=== PATIENT | male | born 1990 | race Two or more races ===

== ENCOUNTER 2020-06-12 06:13 | Inpatient (IN) | payer BC, OTHER ==
[2020-06-12] MEDS ORDERED: Sodium Chloride 0.9% 2.5 ML Syringe FLUSH PRN (06:16)
[2020-06-12] MEDS ORDERED: Sodium Chloride 0.9% 10 ML Syringe FLUSH PRN (06:16)
[2020-06-12] MEDS ORDERED: Insulin Regular, Human 100 Units/ML 10 ML Vial IVPUSH ONE ×2 (06:20→06:56)
[2020-06-12] MEDS ORDERED: Sodium Chloride 0.9% 1,000 ML IV ONE ×2 (06:20→08:10)
[2020-06-12] MEDS ORDERED: Ondansetron 4 MG/2 ML SDV IVPUSH ONE ×2 (06:20→08:01)
--- NOTE | 2020-06-12 06:23 | EDM.PDOC ---
ED HPI GENERAL MEDICAL PROBLEM - General Stated Complaint: TROUBLE BREATHING, DIABETES Time Seen by Provider: 06/12/20 06:21 - History of Present Illness INITIAL COMMENTS - FREE TEXT/NARRATIVE: History of present illness: [] Diabetic who is not been admitted for the last 12 years reports his sugars were creeping up yesterday evening and he became short of breath at 430 this morning. He was getting ready to go to work and noted that his blood sugar was over 500. Feels chest pain when he breathes. It is constant and not sharp. It is in the left side of his chest moderately severe. He is short of breath and feels like he cannot get enough air. Patient has no abdominal pain. He did vomit once. He does not have any fever or other signs of systemic infection. Review of systems: As per history of present illness and below otherwise all systems reviewed and negative. Past medical history: As per history of present illness and as reviewed below otherwise noncontributory. Surgical history: As per history of present illness and as reviewed below otherwise noncontributory. Social history: Does not smoke or use drugs. He does drink alcohol. Family history: As per history of present illness and as reviewed below otherwise noncontri butory. Physical exam: Constitutional - well developed, well-nourished and in no acute distress HEENT - normocephalic, no evidence of trauma - external nose and mouth normal - no mass in neck and no JVD - mucosae moist EYES - full EOM, PERRL, no icterus - no evidence of inflammation, injection, or drainage Respiratory -held respiratory distress,, equal bilateral expansion, lungs clear to auscultation and no abnormal lung sounds Cardiovascular - Regular Rhythm with S1 and S2 appreciated and no murmur, gallop or rub. GI - abdomen soft without distension or organomegaly - normal bowel sounds - no guard or rebound Musculoskeletal no gross deformity of long bones or joints - no tenderness, swelling or edema Neurologic - Alert and oriented times four - CN II-XII grossly intact - motor se nsory and coordination symmetrically normal Psychiatric - appropriate mood and affect with normal thought content Hematologic - No petechiae or purpura - mucosa appropriate color and sclera not pale - normal nail bed color and refill Integument - no rash or evidence of trauma - normal turgor Diagnostics: Diagnostic tests initiated to ascertain whether he is in DKA and treatment assuming the same were initiated [] Therapeutics: Splinting fluids. Remainder according the lab [] Impression: DKA [] Plan: [] Definitive disposition and diagnosis as appropriate pending reevaluation and review of above. chest Pain Score (Numeric/FACES): 6 - Related Data Allergies Allergy/AdvReac Type Severity Reaction Status Date / Time ceftriaxone [From Rocephin] Allergy Anaphylactic Verified 06/12/20 06:40 Shock Home Meds: Home Meds Insulin Lispro [HumaLOG] 0 unit SUBCUT ASDIRECTED 06/12/20 [History] ED ROS GENERAL - Review of Systems Review Of Systems: Comprehensive ROS is negative, except as noted in HPI. ED EXAM, GENERAL - Physical Exam Exam: See Below Free Text/Narrative:: My physical exam as in the HPI EKG INTERPRETATION EKG Date: 06/12/20 Time: 06:20 Rhythm: NSR Rate (Beats/Min): 93 ST-T: Other (Depressions in lateral leads with borderline elevation and early precordial leads) Comparison: NA - No Prior EKG EKG Interpretation Comments: No obvious acute injury Course - Vital Signs Text/Narrative:: 06 47 not clinically improved. Chest x-ray shows no pneumothorax or infiltrate. Discussed with Dr. Zhu and admitted Last Recorded V/S: Last Vital Signs Temp 97.5 F 06/12/20 06:15 Pulse 113 H 06/12/20 06:53 Resp 21 H 06/12/20 06:53 BP 144/79 H 06/12/20 06:53 Pulse Ox 100 06/12/20 06:53 - Orders/Labs/Meds Orders: Active Orders 24 hr Category Date Time Status Admission Diagnosis [ADT] Stat ADT 06/12/20 07:09 Ordered Admission Status [Patient Status] [ADT] Stat ADT 06/12/20 07:10 Ordered Cardiac Monitoring [RC] . DIRECTED Care 06/12/20 06:16 Active EKG Documentation Completion [RC] AM Care 06/12/20 06:16 Active CORONAVIRUS COVID-19 PCR PHL Stat Lab 06/12/20 06:23 Ordered KETONES,BLOOD [CHEM] Stat Lab 06/12/20 06:15 Received Insulin Regular, Human [NovoLIN R] 100 unit Med 06/12/20 07:15 Ordered Sodium Chloride 0.9% [Normal Saline] 99 ml IV TITRATE Sodium Chloride 0.9% [Normal Saline] 1,000 ml Med 06/12/20 06:20 Active IV .BOLUS Sodium Chloride 0.9% [Saline Flush] Med 06/12/20 06:16 Active 10 ml FLUSH ASDIRECTED PRN Sodium Chloride 0.9% [Saline Flush] Med 06/12/20 06:16 Active 2.5 ml FLUSH ASDIRECTED PRN Saline Lock Insert [OM.PC] Stat Oth 06/12/20 06:17 Ordered Medication Orders Sodium Chloride (Normal Saline) 1,000 mls @ 999 mls/hr IV .BOLUS ONE Stop: 06/12/20 07:20 Last Admin: 06/12/20 06:26 Dose: 999 mls/hr Documented by: RUBY Insulin Human Regular 100 unit (/ Sodium Chloride) 100 mls @ 1 mls/hr IV TITRATE BABATUNDE; Protocol Sodium Chloride (Saline Flush) 10 ml FLUSH ASDIRECTED PRN PRN Reason: Keep Vein Open Last Admin: 06/12/20 06:37 Dose: 10 ml Documented by: RUBY Sodium Chloride (Saline Flush) 2.5 ml FLUSH ASDIRECTED PRN PRN Reason: Keep Vein Open Last Admin: 06/12/20 06:37 Dose: 2.5 ml Documented by: RUBY Labs: Laboratory Tests 06/12/20 06/12/20 06/12/20 Range/Units 06:15 06:15 06:28 WBC 7.72 (4.0-11.0) K/uL RBC 4.82 (4.50-5.90) M/uL Hgb 14.2 (13.0-17.0) g/dL Hct 42.1 (38.0-50.0) % MCV 87.3 (80.0-98.0) fL MCH 29.5 (27.0-32.0) pg MCHC 33.7 (31.0-37.0) g/dL RDW Std Deviation 40.2 (28.0-62.0) fl RDW Coeff of Willy 13 (11.0-15.0) % Plt Count 266 (150-400) K/uL MPV 12.10 H (7.40-12.00) fL Neut % (Auto) 79.0 (48.0-80.0) % Lymph % (Auto) 16.8 (16.0-40.0) % [place] % (Auto) 3.5 (0.0-15.0) % Eos % (Auto) 0.4 (0.0-7.0) % Baso % (Auto) 0.3 (0.0-1.5) % Neut # (Auto) 6.1 H (1.4-5.7) K/uL Lymph # (Auto) 1.3 (0.6-2.4) K/uL [place] # (Auto) 0.3 (0.0-0.8) K/uL Eos # (Auto) 0.0 (0.0-0.7) K/uL Baso # (Auto) 0.0 (0.0-0.1) K/uL Nucleated RBC % 0.0 /100WBC Nucleated RBCs # 0 K/uL ABG pH ABG pCO2 ABG pO2 ABG HCO3 ABG Total CO2 ABG Base Excess Sodium 124 L (136-148) mmol/L Potassium 4.4 (3.5-5.1) mmol/L Chloride 89 L (98-107) mmol/L Carbon Dioxide 14.2 L (21.0-32.0) mmol/L BUN 27 H (7.0-18.0) mg/dL Creatinine 1.7 H (0.8-1.3) mg/dL Est Cr Clr Drug Dosing 69.74 mL/min Estimated GFR (MDRD) 47.6 ml/min Glucose 593 H* (74-106) mg/dL POC Glucose > 500 H (60-110) mg/dL Calcium 9.1 (8.5-10.1) mg/dL Magnesium 2.0 (1.8-2.4) mg/dL Total Bilirubin 1.3 H (0.2-1.0) mg/dL AST 20 (15-37) IU/L ALT 22 (14-63) IU/L Alkaline Phosphatase 85 (46-116) U/L Troponin I < 0.050 (0.000-0.056) ng/mL Total Protein 8.5 H (6.4-8.2) g/dL Albumin 4.4 (3.4-5.0) g/dL Globulin 4.1 H (2.6-4.0) g/dL Albumin/Globulin Ratio 1.1 (0.9-1.6) Lipase 48 L (73-393) U/L Urine Color Urine Appearance Urine pH (5.0-8.0) Ur Specific [place] (1.001-1.035) Urine Protein (NEGATIVE) mg/dL Urine Glucose (UA) (NEGATIVE) mg/dL Urine Ketones (NEGATIVE) mg/dL Urine Occult Blood (NEGATIVE) Urine Nitrite (NEGATIVE) Urine Bilirubin (NEGATIVE) Urine Urobilinogen (<2.0) EU/dL Ur Leukocyte Esterase (NEGATIVE) Urine RBC (0-2/HPF) Urine WBC (0-5/HPF) Ur Epithelial Cells (NONE-FEW) Urine Bacteria (NEGATIVE) Urine Mucus (NONE-MOD) 06/12/20 06/12/20 06/12/20 Range/Units 06:35 06:35 06:46 WBC (4.0-11.0) K/uL RBC (4.50-5.90) M/uL Hgb (13.0-17.0) g/dL Hct (38.0-50.0) % MCV (80.0-98.0) fL MCH (27.0-32.0) pg MCHC (31.0-37.0) g/dL RDW Std Deviation (28.0-62.0) fl RDW Coeff of Willy (11.0-15.0) % Plt Count (150-400) K/uL MPV (7.40-12.00) fL Neut % (Auto) (48.0-80.0) % Lymph % (Auto) (16.0-40.0) % Ball[place] % (Auto) (0.0-15.0) % Eos % (Auto) (0.0-7.0) % Baso % (Auto) (0.0-1.5) % Neut # (Auto) (1.4-5.7) K/uL Lymph # (Auto) (0.6-2.4) K/uL Ballard # (Auto) (0.0-0.8) K/uL Eos # (Auto) (0.0-0.7) K/uL Baso # (Auto) (0.0-0.1) K/uL Nucleated RBC % /100WBC Nucleated RBCs # K/uL ABG pH Cancelled 7.336 L ABG pCO2 Cancelled 12 L ABG pO2 Cancelled 193 H ABG HCO3 Cancelled 6 L ABG Total CO2 Cancelled ABG Base Excess Cancelled -16.2 L Sodium (136-148) mmol/L Potassium (3.5-5.1) mmol/L Chloride (98-107) mmol/L Carbon Dioxide (21.0-32.0) mmol/L BUN (7.0-18.0) mg/dL Creatinine (0.8-1.3) mg/dL Est Cr Clr Drug Dosing mL/min Estimated GFR (MDRD) ml/min Glucose (74-106) mg/dL POC Glucose (60-110) mg/dL Calcium (8.5-10.1) mg/dL Magnesium (1.8-2.4) mg/dL Total Bilirubin (0.2-1.0) mg/dL AST (15-37) IU/L ALT (14-63) IU/L Alkaline Phosphatase (46-116) U/L Troponin I (0.000-0.056) ng/mL Total Protein (6.4-8.2) g/dL Albumin (3.4-5.0) g/dL Globulin (2.6-4.0) g/dL Albumin/Globulin Ratio (0.9-1.6) Lipase (73-393) U/L Urine Color YELLOW Urine Appearance CLEAR Urine pH 5.5 (5.0-8.0) Ur Specific [place] 1.015 (1.001-1.035) Urine Protein NEGATIVE (NEGATIVE) mg/dL Urine Glucose (UA) >=1000 (NEGATIVE) mg/dL Urine Ketones >=80 (NEGATIVE) mg/dL Urine Occult Blood TRACE-INTACT H (NEGATIVE) Urine Nitrite NEGATIVE (NEGATIVE) Urine Bilirubin NEGATIVE (NEGATIVE) Urine Urobilinogen 0.2 (<2.0) EU/dL Ur Leukocyte Esterase NEGATIVE (NEGATIVE) Urine RBC 0-2 (0-2/HPF) Urine WBC 0-1 (0-5/HPF) Ur Epithelial Cells OCCASIONAL (NONE-FEW) Urine Bacteria RARE (NEGATIVE) Urine Mucus LIGHT (NONE-MOD) 06/12/20 Range/Units 06:51 WBC (4.0-11.0) K/uL RBC (4.50-5.90) M/uL Hgb (13.0-17.0) g/dL Hct (38.0-50.0) % MCV (80.0-98.0) fL MCH (27.0-32.0) pg MCHC (31.0-37.0) g/dL RDW Std Deviation (28.0-62.0) fl RDW Coeff of Willy (11.0-15.0) % Plt Count (150-400) K/uL MPV (7.40-12.00) fL Neut % (Auto) (48.0-80.0) % Lymph % (Auto) (16.0-40.0) % Ballard % (Auto) (0.0-15.0) % Eos % (Auto) (0.0-7.0) % Baso % (Auto) (0.0-1.5) % Neut # (Auto) (1.4-5.7) K/uL Lymph # (Auto) (0.6-2.4) K/uL [place] # (Auto) (0.0-0.8) K/uL Eos # (Auto) (0.0-0.7) K/uL Baso # (Auto) (0.0-0.1) K/uL Nucleated RBC % /100WBC Nucleated RBCs # K/uL ABG pH ABG pCO2 ABG pO2 ABG HCO3 ABG Total CO2 ABG Base Excess Sodium (136-148) mmol/L Potassium (3.5-5.1) mmol/L Chloride (98-107) mmol/L Carbon Dioxide (21.0-32.0) mmol/L BUN (7.0-18.0) mg/dL Creatinine (0.8-1.3) mg/dL Est Cr Clr Drug Dosing mL/min Estimated GFR (MDRD) ml/min Glucose (74-106) mg/dL POC Glucose > 500 H (60-110) mg/dL Calcium (8.5-10.1) mg/dL Magnesium (1.8-2.4) mg/dL Total Bilirubin (0.2-1.0) mg/dL AST (15-37) IU/L ALT (14-63) IU/L Alkaline Phosphatase (46-116) U/L Troponin I (0.000-0.056) ng/mL Total Protein (6.4-8.2) g/dL Albumin (3.4-5.0) g/dL Globulin (2.6-4.0) g/dL Albumin/Globulin Ratio (0.9-1.6) Lipase (73-393) U/L Urine Color Urine Appearance Urine pH (5.0-8.0) Ur Specific [place] (1.001-1.035) Urine Protein (NEGATIVE) mg/dL Urine Glucose (UA) (NEGATIVE) mg/dL Urine Ketones (NEGATIVE) mg/dL Urine Occult Blood (NEGATIVE) Urine Nitrite (NEGATIVE) Urine Bilirubin (NEGATIVE) Urine Urobilinogen (<2.0) EU/dL Ur Leukocyte Esterase (NEGATIVE) Urine RBC (0-2/HPF) Urine WBC (0-5/HPF) Ur Epithelial Cells (NONE-FEW) Urine Bacteria (NEGATIVE) Urine Mucus (NONE-MOD) Meds: Medications Generic Name Dose Route Start Last Admin Trade Name Freq PRN Reason Stop Dose Admin Sodium Chloride 1,000 mls @ 999 mls/hr 06/12/20 06:20 06/12/20 06:26 Normal Saline IV 06/12/20 07:20 999 mls/hr .BOLUS ONE Administration Insulin Human Regular 100 unit 100 mls @ 1 mls/hr 06/12/20 07:15 / Sodium Chloride IV TITRATE BABATUNDE Protocol 1 UNIT/HR Sodium Chloride 10 ml 06/12/20 06:16 06/12/20 06:37 Saline Flush FLUSH 10 ml ASDIRECTED PRN Administration Keep Vein Open Sodium Chloride 2.5 ml 06/12/20 06:16 06/12/20 06:37 Saline Flush FLUSH 2.5 ml ASDIRECTED PRN Administration Keep Vein Open Discontinued Medications Generic Name Dose Route Start Last Admin Trade Name Freq PRN Reason Stop Dose Admin Insulin Human Regular 10 unit 06/12/20 06:20 06/12/20 06:26 Novolin R IVPUSH 06/12/20 06:21 10 unit ONETIME ONE Administration Protocol Insulin Human Regular 10 unit 06/12/20 06:56 06/12/20 06:58 Novolin R IVPUSH 06/12/20 06:57 10 unit ONETIME ONE Administration Protocol Morphine Sulfate 4 mg 06/12/20 06:39 06/12/20 06:43 Morphine IVPUSH 06/12/20 06:40 4 mg ONETIME ONE Administration Ondansetron HCl 4 mg 06/12/20 06:20 06/12/20 06:26 Zofran IVPUSH 06/12/20 06:21 4 mg ONETIME ONE Administration Departure - Departure Time of Disposition: 07:14 Disposition: Admitted As Inpatient 65 Clinical Impression: Diabetic ketoacidosis, Chest pain - Discharge Information Referrals: PCP,None [Primary Care Provider] - Sepsis Event Note (ED) - Focused Exam Vital Signs: Vital Signs Temp Pulse Resp BP Pulse Ox 06/12/20 06:53 113 H 21 H 144/79 H 100 06/12/20 06:15 97.5 F 105 H 20 144/78 H 100 - My Orders Last 24 Hours: My Active Orders 06/12/20 06:15 KETONES,BLOOD [CHEM] Stat 06/12/20 06:16 Cardiac Monitoring [RC] . DIRECTED EKG Documentation Completion [RC] AM Sodium Chloride 0.9% [Saline Flush] 10 ml FLUSH ASDIRECTED PRN Sodium Chloride 0.9% [Saline Flush] 2.5 ml FLUSH ASDIRECTED PRN 06/12/20 06:17 Saline Lock Insert [OM.PC] Stat 06/12/20 06:20 Sodium Chloride 0.9% [Normal Saline] 1,000 ml IV .BOLUS 06/12/20 06:23 CORONAVIRUS COVID-19 PCR PHL Stat 06/12/20 07:09 Admission Diagnosis [ADT] Stat 06/12/20 07:10 Admission Status [Patient Status] [ADT] Stat 06/12/20 07:15 Insulin Regular, Human [NovoLIN R] 100 unit Sodium Chloride 0.9% [Normal Saline] 99 ml IV TITRATE - Assessment/Plan Last 24 Hours: My Active Orders 06/12/20 06:15 KETONES,BLOOD [CHEM] Stat 06/12/20 06:16 Cardiac Monitoring [RC] . DIRECTED EKG Documentation Completion [RC] AM Sodium Chloride 0.9% [Saline Flush] 10 ml FLUSH ASDIRECTED PRN Sodium Chloride 0.9% [Saline Flush] 2.5 ml FLUSH ASDIRECTED PRN 06/12/20 06:17 Saline Lock Insert [OM.PC] Stat 06/12/20 06:20 Sodium Chloride 0.9% [Normal Saline] 1,000 ml IV .BOLUS 06/12/20 06:23 CORONAVIRUS COVID-19 PCR PHL Stat 06/12/20 07:09 Admission Diagnosis [ADT] Stat 06/12/20 07:10 Admission Status [Patient Status] [ADT] Stat 06/12/20 07:15 Insulin Regular, Human [NovoLIN R] 100 unit Sodium Chloride 0.9% [Normal Saline] 99 ml IV TITRATE
[2020-06-12] MEDS ORDERED: Morphine 4 MG/ML Syringe IVPUSH ONE (06:39)
--- NOTE | 2020-06-12 07:03 | CR ---
INDICATION: Chest pain. TECHNIQUE: Chest 1 view Comparison: None Findings: Cardiomediastinal silhouette is unremarkable. No focal lung consolidation, pleural effusion or pneumothorax. Cardiac leads overlie the chest. Bones are unremarkable. Impression: No acute cardiopulmonary abnormality. Dictated by Allan Guadarrama MD @ Jun 12 2020 7:00AM Signed by Dr. Allan Guadarrama @ Jun 12 2020 7:01AM
[2020-06-12 07:09] LABS: BLOOD UREA NITROGEN,BUN 27 mg/dL (7.0-18.0); CARBON DIOXIDE,CO2 14.2 mmol/L (21.0-32.0); CHLORIDE,CL 89 mmol/L (98-107); LIPASE 48 U/L (73-393); POTASSIUM,K 4.4 mmol/L (3.5-5.1); SODIUM,NA 124 mmol/L (136-148)
[2020-06-12 07:12] LABS: GLUCOSE RANDOM 593 mg/dL (74-106)
[2020-06-12] MEDS ORDERED: Ondansetron 4 MG/2 ML SDV ONE (08:01)
[2020-06-12] MEDS ORDERED: Lactated Ringers 1,000 ML IV ONE (08:24)
[2020-06-12] MEDS ORDERED: Albuterol/Ipratropium 3.0-0.5 MG/3 ML Neb Soln NEB PRN (08:24)
[2020-06-12] MEDS ORDERED: Ondansetron 4 MG/2 ML SDV IVPUSH PRN (08:24)
[2020-06-12] MEDS ORDERED: Morphine 10 MG/ML Syringe IVPUSH PRN (08:24)
[2020-06-12] MEDS: Heparin Sodium 5,000 Units/ML Vial SUBCUT SCH ×2 (08:50→16:30)
[2020-06-12] MEDS ORDERED: Morphine 2 MG/ML SYRINGE IVPUSH PRN (08:58)
[2020-06-12] MEDS: Lactated Ringers 1,000 ML IV SCH ×2 (09:31→20:52)
--- NOTE | 2020-06-12 10:04 | PCM.HP.2 ---
<Db Bentley M - Last Filed: 06/12/20 14:00> H&P History of Present Illness - General Date of Service: 06/12/20 Admit Problem/Dx: Admission Diagnosis/Problem Admission Diagnosis/Problem Diabetic ketoacidosis Source of Information: Patient History Limitations: Reports: No Limitations - History of Present Illness Initial Comments - Free Text/Narative: 29-year-old male presents today complaining of SOB, chest pain, nausea and vomiting. He has a PMH of type 1 DM. Patient reports that yesterday night he became very thirsty and urinating a lot. He has an insulin pump and noticed that his blood sugar readings kept increasing. This morning, he was trying to go to work but became so weak that he couldn't even get dressed. He checked his blood glucose and it was >500. He believes that his insulin pump has been malfunctioning. He has been on an insulin pump for the past 6 months and reports that it had been working well. He denies any recent illness. Denies any fevers, chills, cough, sore throat, abdominal pain, diarrhea, dysuria, blood in urine, blood in stool, numbness or tingling in extremities. In the ER, patient's blood glucose was 593. ABG: pH: 7.33, pCO2: 12 and HCO3: 6. CXR negative. COVID19 test negative. Patient given IV fluid boluses and started on insulin drip. Admitted for further evaluation and treatment. chest Pain Score (Numeric/FACES): 6 - Related Data Allergies/Adverse Reactions: Allergies Allergy/AdvReac Type Severity Reaction Status Date / Time ceftriaxone [From Rocephin] Allergy Anaphylactic Verified 06/12/20 06:40 Shock Home Medications: Home Meds Insulin Lispro [HumaLOG] 0 unit SUBCUT ASDIRECTED 06/12/20 [History] Past Medical History Gastrointestinal History: Reports: None Musculoskeletal History: Reports: None Endocrine/Metabolic History: Reports: Diabetes, Type I, Other (See Below) Other Endocrine/Metabolic History: on insulin pump - Past Surgical History GI Surgical History: Reports: Appendectomy Musculoskeletal Surgical History: Reports: Other (See Below) Other Musculoskeletal Surgeries/Procedures:: R thumb Social & Family History - Family History Family Medical History: Noncontributory - Tobacco Use Smoking Status *Q: Never Smoker Second Hand Smoke Exposure: No - Caffeine Use Caffeine Use: Reports: None - Recreational Drug Use Recreational Drug Use: No H&P Review of Systems - Review of Systems: Review Of Systems: Comprehensive ROS is negative, except as noted in HPI. Exam - Exam Exam: See Below - Vital Signs Vital Signs: Last Vital Signs Temp 36.4 C 06/12/20 06:15 Pulse 118 H 06/12/20 09:24 Resp 16 06/12/20 09:24 BP 111/56 L 06/12/20 09:24 Pulse Ox 98 06/12/20 09:24 Weight: 81.647 kg - Exam General: Alert, Oriented, Cooperative, Other (NAD) HEENT: Conjunctiva Clear, EOMI, Hearing Intact, Mucosa Moist & Quintana, Posterior Pharynx Clear, Pupils Equal, Pupils Reactive Neck: Supple, Trachea Midline Lungs: Clear to Auscultation, Normal Respiratory Effort Cardiovascular: Regular Rhythm, Tachycardia GI/Abdominal Exam: Normal Bowel Sounds, Soft, Non-Tender, No Distention Extremities: Normal Inspection, No Pedal Edema Peripheral Pulses: 2+: Radial (L), Radial (R) Skin: Warm, Dry, Intact Neurological: Cranial Nerves Intact, Strength Equal Bilateral, Normal Speech, Normal Tone Neuro Extensive - Mental Status: Alert, Oriented x3, Normal Mood/Affect Psychiatric: Alert, Normal Affect, Normal Mood - Patient Data Lab Results Last 24 hrs: Laboratory Results - last 24 hr 06/12/20 06/12/20 06/12/20 Range/Units 06:15 06:15 06:15 WBC 7.72 (4.0-11.0) K/uL RBC 4.82 (4.50-5.90) M/uL Hgb 14.2 (13.0-17.0) g/dL Hct 42.1 (38.0-50.0) % MCV 87.3 (80.0-98.0) fL MCH 29.5 (27.0-32.0) pg MCHC 33.7 (31.0-37.0) g/dL RDW Std Deviation 40.2 (28.0-62.0) fl RDW Coeff of Willy 13 (11.0-15.0) % Plt Count 266 (150-400) K/uL MPV 12.10 H (7.40-12.00) fL Neut % (Auto) 79.0 (48.0-80.0) % Lymph % (Auto) 16.8 (16.0-40.0) % Bradley % (Auto) 3.5 (0.0-15.0) % Eos % (Auto) 0.4 (0.0-7.0) % Baso % (Auto) 0.3 (0.0-1.5) % Neut # (Auto) 6.1 H (1.4-5.7) K/uL Lymph # (Auto) 1.3 (0.6-2.4) K/uL Bradley # (Auto) 0.3 (0.0-0.8) K/uL Eos # (Auto) 0.0 (0.0-0.7) K/uL Baso # (Auto) 0.0 (0.0-0.1) K/uL Nucleated RBC % 0.0 /100WBC Nucleated RBCs # 0 K/uL ABG pH ABG pCO2 ABG pO2 ABG HCO3 ABG Total CO2 ABG Base Excess Sodium 124 L (136-148) mmol/L Potassium 4.4 (3.5-5.1) mmol/L Chloride 89 L (98-107) mmol/L Carbon Dioxide 14.2 L (21.0-32.0) mmol/L BUN 27 H (7.0-18.0) mg/dL Creatinine 1.7 H (0.8-1.3) mg/dL Est Cr Clr Drug Dosing 69.74 mL/min Estimated GFR (MDRD) 47.6 ml/min Glucose 593 H* (74-106) mg/dL POC Glucose (60-110) mg/dL Calcium 9.1 (8.5-10.1) mg/dL Magnesium 2.0 (1.8-2.4) mg/dL Total Bilirubin 1.3 H (0.2-1.0) mg/dL AST 20 (15-37) IU/L ALT 22 (14-63) IU/L Alkaline Phosphatase 85 (46-116) U/L Troponin I < 0.050 (0.000-0.056) ng/mL Total Protein 8.5 H (6.4-8.2) g/dL Albumin 4.4 (3.4-5.0) g/dL Globulin 4.1 H (2.6-4.0) g/dL Albumin/Globulin Ratio 1.1 (0.9-1.6) Lipase 48 L (73-393) U/L Urine Color Urine Appearance Urine pH (5.0-8.0) Ur Specific [place] (1.001-1.035) Urine Protein (NEGATIVE) mg/dL Urine Glucose (UA) (NEGATIVE) mg/dL Urine Ketones (NEGATIVE) mg/dL Urine Occult Blood (NEGATIVE) Urine Nitrite (NEGATIVE) Urine Bilirubin (NEGATIVE) Urine Urobilinogen (<2.0) EU/dL Ur Leukocyte Esterase (NEGATIVE) Urine RBC (0-2/HPF) Urine WBC (0-5/HPF) Ur Epithelial Cells (NONE-FEW) Urine Bacteria (NEGATIVE) Urine Mucus (NONE-MOD) Ketones SMALL H (NEG) COVID-19 ([facility]ON) (NEGATIVE) 06/12/20 06/12/20 06/12/20 Range/Units 06:28 06:35 06:35 WBC (4.0-11.0) K/uL RBC (4.50-5.90) M/uL Hgb (13.0-17.0) g/dL Hct (38.0-50.0) % MCV (80.0-98.0) fL MCH (27.0-32.0) pg MCHC (31.0-37.0) g/dL RDW Std Deviation (28.0-62.0) fl RDW Coeff of Willy (11.0-15.0) % Plt Count (150-400) K/uL MPV (7.40-12.00) fL Neut % (Auto) (48.0-80.0) % Lymph % (Auto) (16.0-40.0) % Bradley % (Auto) (0.0-15.0) % Eos % (Auto) (0.0-7.0) % Baso % (Auto) (0.0-1.5) % Neut # (Auto) (1.4-5.7) K/uL Lymph # (Auto) (0.6-2.4) K/uL Bradley # (Auto) (0.0-0.8) K/uL Eos # (Auto) (0.0-0.7) K/uL Baso # (Auto) (0.0-0.1) K/uL Nucleated RBC % /100WBC Nucleated RBCs # K/uL ABG pH Cancelled ABG pCO2 Cancelled ABG pO2 Cancelled ABG HCO3 Cancelled ABG Total CO2 Cancelled ABG Base Excess Cancelled Sodium (136-148) mmol/L Potassium (3.5-5.1) mmol/L Chloride (98-107) mmol/L Carbon Dioxide (21.0-32.0) mmol/L BUN (7.0-18.0) mg/dL Creatinine (0.8-1.3) mg/dL Est Cr Clr Drug Dosing mL/min Estimated GFR (MDRD) ml/min Glucose (74-106) mg/dL POC Glucose > 500 H (60-110) mg/dL Calcium (8.5-10.1) mg/dL Magnesium (1.8-2.4) mg/dL Total Bilirubin (0.2-1.0) mg/dL AST (15-37) IU/L ALT (14-63) IU/L Alkaline Phosphatase (46-116) U/L Troponin I (0.000-0.056) ng/mL Total Protein (6.4-8.2) g/dL Albumin (3.4-5.0) g/dL Globulin (2.6-4.0) g/dL Albumin/Globulin Ratio (0.9-1.6) Lipase (73-393) U/L Urine Color YELLOW Urine Appearance CLEAR Urine pH 5.5 (5.0-8.0) Ur Specific [place] 1.015 (1.001-1.035) Urine Protein NEGATIVE (NEGATIVE) mg/dL Urine Glucose (UA) >=1000 (NEGATIVE) mg/dL Urine Ketones >=80 (NEGATIVE) mg/dL Urine Occult Blood TRACE-INTACT H (NEGATIVE) Urine Nitrite NEGATIVE (NEGATIVE) Urine Bilirubin NEGATIVE (NEGATIVE) Urine Urobilinogen 0.2 (<2.0) EU/dL Ur Leukocyte Esterase NEGATIVE (NEGATIVE) Urine RBC 0-2 (0-2/HPF) Urine WBC 0-1 (0-5/HPF) Ur Epithelial Cells OCCASIONAL (NONE-FEW) Urine Bacteria RARE (NEGATIVE) Urine Mucus LIGHT (NONE-MOD) Ketones (NEG) COVID-19 ([facility]) (NEGATIVE) 08/02/2606/12/20 06/12/20 Range/Units 06:46 06:51 07:15 WBC (4.0-11.0) K/uL RBC (4.50-5.90) M/uL Hgb (13.0-17.0) g/dL Hct (38.0-50.0) % MCV (80.0-98.0) fL MCH (27.0-32.0) pg MCHC (31.0-37.0) g/dL RDW Std Deviation (28.0-62.0) fl RDW Coeff of Willy (11.0-15.0) % Plt Count (150-400) K/uL MPV (7.40-12.00) fL Neut % (Auto) (48.0-80.0) % Lymph % (Auto) (16.0-40.0) % Bradley % (Auto) (0.0-15.0) % Eos % (Auto) (0.0-7.0) % Baso % (Auto) (0.0-1.5) % Neut # (Auto) (1.4-5.7) K/uL Lymph # (Auto) (0.6-2.4) K/uL Bradley # (Auto) (0.0-0.8) K/uL Eos # (Auto) (0.0-0.7) K/uL Baso # (Auto) (0.0-0.1) K/uL Nucleated RBC % /100WBC Nucleated RBCs # K/uL ABG pH 7.336 L ABG pCO2 12 L ABG pO2 193 H ABG HCO3 6 L ABG Total CO2 ABG Base Excess -16.2 L Sodium (136-148) mmol/L Potassium (3.5-5.1) mmol/L Chloride (98-107) mmol/L Carbon Dioxide (21.0-32.0) mmol/L BUN (7.0-18.0) mg/dL Creatinine (0.8-1.3) mg/dL Est Cr Clr Drug Dosing mL/min Estimated GFR (MDRD) ml/min Glucose (74-106) mg/dL POC Glucose > 500 H (60-110) mg/dL Calcium (8.5-10.1) mg/dL Magnesium (1.8-2.4) mg/dL Total Bilirubin (0.2-1.0) mg/dL AST (15-37) IU/L ALT (14-63) IU/L Alkaline Phosphatase (46-116) U/L Troponin I (0.000-0.056) ng/mL Total Protein (6.4-8.2) g/dL Albumin (3.4-5.0) g/dL Globulin (2.6-4.0) g/dL Albumin/Globulin Ratio (0.9-1.6) Lipase (73-393) U/L Urine Color Urine Appearance Urine pH (5.0-8.0) Ur Specific [place] (1.001-1.035) Urine Protein (NEGATIVE) mg/dL Urine Glucose (UA) (NEGATIVE) mg/dL Urine Ketones (NEGATIVE) mg/dL Urine Occult Blood (NEGATIVE) Urine Nitrite (NEGATIVE) Urine Bilirubin (NEGATIVE) Urine Urobilinogen (<2.0) EU/dL Ur Leukocyte Esterase (NEGATIVE) Urine RBC (0-2/HPF) Urine WBC (0-5/HPF) Ur Epithelial Cells (NONE-FEW) Urine Bacteria (NEGATIVE) Urine Mucus (NONE-MOD) Ketones (NEG) COVID-19 ([facility]ON) NEGATIVE (NEGATIVE) 06/12/20 Range/Units 07:20 WBC (4.0-11.0) K/uL RBC (4.50-5.90) M/uL Hgb (13.0-17.0) g/dL Hct (38.0-50.0) % MCV (80.0-98.0) fL MCH (27.0-32.0) pg MCHC (31.0-37.0) g/dL RDW Std Deviation (28.0-62.0) fl RDW Coeff of Willy (11.0-15.0) % Plt Count (150-400) K/uL MPV (7.40-12.00) fL Neut % (Auto) (48.0-80.0) % Lymph % (Auto) (16.0-40.0) % Bradley % (Auto) (0.0-15.0) % Eos % (Auto) (0.0-7.0) % Baso % (Auto) (0.0-1.5) % Neut # (Auto) (1.4-5.7) K/uL Lymph # (Auto) (0.6-2.4) K/uL Bradley # (Auto) (0.0-0.8) K/uL Eos # (Auto) (0.0-0.7) K/uL Baso # (Auto) (0.0-0.1) K/uL Nucleated RBC % /100WBC Nucleated RBCs # K/uL ABG pH ABG pCO2 ABG pO2 ABG HCO3 ABG Total CO2 ABG Base Excess Sodium (136-148) mmol/L Potassium (3.5-5.1) mmol/L Chloride (98-107) mmol/L Carbon Dioxide (21.0-32.0) mmol/L BUN (7.0-18.0) mg/dL Creatinine (0.8-1.3) mg/dL Est Cr Clr Drug Dosing mL/min Estimated GFR (MDRD) ml/min Glucose (74-106) mg/dL POC Glucose > 500 H (60-110) mg/dL Calcium (8.5-10.1) mg/dL Magnesium (1.8-2.4) mg/dL Total Bilirubin (0.2-1.0) mg/dL AST (15-37) IU/L ALT (14-63) IU/L Alkaline Phosphatase (46-116) U/L Troponin I (0.000-0.056) ng/mL Total Protein (6.4-8.2) g/dL Albumin (3.4-5.0) g/dL Globulin (2.6-4.0) g/dL Albumin/Globulin Ratio (0.9-1.6) Lipase (73-393) U/L Urine Color Urine Appearance Urine pH (5.0-8.0) Ur Specific [place] (1.001-1.035) Urine Protein (NEGATIVE) mg/dL Urine Glucose (UA) (NEGATIVE) mg/dL Urine Ketones (NEGATIVE) mg/dL Urine Occult Blood (NEGATIVE) Urine Nitrite (NEGATIVE) Urine Bilirubin (NEGATIVE) Urine Urobilinogen (<2.0) EU/dL Ur Leukocyte Esterase (NEGATIVE) Urine RBC (0-2/HPF) Urine WBC (0-5/HPF) Ur Epithelial Cells (NONE-FEW) Urine Bacteria (NEGATIVE) Urine Mucus (NONE-MOD) Ketones (NEG) COVID-19 ([facility]) (NEGATIVE) Result Diagrams: 06/12/20 06:15 06/12/20 12:00 Sepsis Event Note - Evaluation Sepsis Screening Result: No Definite Risk - Focused Exam Vital Signs: Vital Signs Temp Pulse Resp BP Pulse Ox 06/12/20 09:24 118 H 16 111/56 L 98 06/12/20 08:53 109 H 17 110/53 L 99 06/12/20 08:22 109 H 17 118/57 L 99 06/12/20 08:19 107 H 18 118/57 L 99 06/12/20 07:47 105 H 17 125/63 100 06/12/20 06:53 113 H 21 H 144/79 H 100 06/12/20 06:15 36.4 C 105 H 20 144/78 H 100 Date Exam was Performed: 06/12/20 Time Exam was Performed: 14:00 Problem List Initiated/Reviewed/Updated: Yes Orders Last 24hrs: Active Orders 24 hr Category Date Time Status Admission Diagnosis [ADT] Stat ADT 06/12/20 07:09 Ordered Admission Status [Patient Status] [ADT] Stat ADT 06/12/20 07:10 Active Ambulate [RC] ASDIRECTED Care 06/12/20 08:24 Active Antiembolic Devices [RC] PER UNIT ROUTINE Care 06/12/20 08:26 Active Cardiac Monitoring [RC] . DIRECTED Care 06/12/20 06:16 Active Communication Order [RC] STAT Care 06/12/20 08:29 Active Communication Order [RC] STAT Care 06/12/20 08:29 Active Communication Order [RC] STAT Care 06/12/20 08:29 Active Communication Order [RC] STAT Care 06/12/20 08:29 Active EKG Documentation Completion [RC] AM Care 06/12/20 06:16 Active Oxygen Therapy [RC] PRN Care 06/12/20 08:24 Active Pulse Oximetry [RC] PRN Care 06/12/20 08:25 Active RT Aerosol Therapy [RC] ASDIRECTED Care 06/12/20 08:28 Active VTE/DVT Education [RC] PER UNIT ROUTINE Care 06/12/20 08:24 Active Vital Signs [RC] Q1H Care 06/12/20 08:24 Active Nothing per Oral Now Diet [DIET] Diet 06/12/20 Breakfast Active BASIC METABOLIC PANEL,BMP [CHEM] Q4H Lab 06/12/20 12:00 Ordered BASIC METABOLIC PANEL,BMP [CHEM] Q4 Lab 06/12/20 16:00 Ordered BASIC METABOLIC PANEL,BMP [CHEM] Q4 Lab 06/12/20 20:00 Ordered MAGNESIUM [CHEM] Q4 Lab 06/12/20 12:00 Ordered MAGNESIUM [CHEM] Q4 Lab 06/12/20 16:00 Ordered MAGNESIUM [CHEM] Q4 Lab 06/12/20 20:00 Ordered PHOSPHORUS [CHEM] Q4 Lab 06/12/20 12:00 Ordered PHOSPHORUS [CHEM] Q4 Lab 06/12/20 16:00 Ordered PHOSPHORUS [CHEM] Q4 Lab 06/12/20 20:00 Ordered Albuterol/Ipratropium [DuoNeb 3.0-0.5 MG/3 ML] Med 06/12/20 08:24 Active 3 ml NEB Q4HRRT PRN Heparin Sodium Med 06/12/20 08:30 Active 5,000 units SUBCUT Q8H Insulin Regular, Human [NovoLIN R] 100 unit Med 06/12/20 07:15 Active Sodium Chloride 0.9% [Normal Saline] 99 ml IV TITRATE Lactated Ringers [Ringers, Lactated] 1,000 ml Med 06/12/20 08:30 Active IV ASDIRECTED Morphine Med 06/12/20 08:58 Active 1 mg IVPUSH Q4H PRN Ondansetron [Zofran] Med 06/12/20 08:24 Active 4 mg IVPUSH Q4H PRN Sodium Chloride 0.9% [Saline Flush] Med 06/12/20 06:16 Active 10 ml FLUSH ASDIRECTED PRN Sodium Chloride 0.9% [Saline Flush] Med 06/12/20 06:16 Active 2.5 ml FLUSH ASDIRECTED PRN Saline Lock Insert [OM.PC] Stat Oth 06/12/20 06:17 Ordered Sequential Compression Device [OM.PC] Per Unit Routine Oth 06/12/20 08:25 Ordered Resuscitation Status Routine Resus Stat 06/12/20 08:24 Ordered Medication Orders Albuterol/Ipratropium (Duoneb 3.0-0.5 Mg/3 Ml) 3 ml NEB Q4HRRT PRN PRN Reason: Shortness Of Breath/wheezing Heparin Sodium (Porcine) (Heparin Sodium) 5,000 units SUBCUT Q8H [facility] Last Admin: 06/12/20 08:50 Dose: 5,000 units Documented by: PAWEL Insulin Human Regular 100 unit (/ Sodium Chloride) 100 mls @ 1 mls/hr IV TITRATE [facility]; Protocol Last Titration: 06/12/20 09:21 Dose: 8 unit/hr, 8 mls/hr Documented by: PAWEL Cosigned by: ELIU Admin: 06/12/20 08:13 Dose: 1 unit/hr, 1 mls/hr Documented by: PAWEL Cosigned by: YULISSA Lactated Ringer's (Ringers, Lactated) 1,000 mls @ 125 mls/hr IV ASDIRECTED [facility] Last Admin: 06/12/20 09:31 Dose: 125 mls/hr Documented by: PAWEL Morphine Sulfate (Morphine) 1 mg IVPUSH Q4H PRN PRN Reason: Pain (severe 7-10) Stop: 06/13/20 08:59 Ondansetron HCl (Zofran) 4 mg IVPUSH Q4H PRN PRN Reason: Nausea/Vomiting Sodium Chloride (Saline Flush) 10 ml FLUSH ASDIRECTED PRN PRN Reason: Keep Vein Open Last Admin: 06/12/20 06:37 Dose: 10 ml Documented by: RUBY Sodium Chloride (Saline Flush) 2.5 ml FLUSH ASDIRECTED PRN PRN Reason: Keep Vein Open Last Admin: 06/12/20 06:37 Dose: 2.5 ml Documented by: RUBY Assessment/Plan Comment:: Assessment and Plan: 1. Diabetic ketoacidosis: - Admit to ICU. Patient received 2 L IV fluid bolus in ER. Continue IV LR's and insulin drip per DKA protocol. Will replete electrolytes as required. Will check BMP q4h. Patient reports that he believes his insulin pump malfunctioned. Will consult diabetic education. 2. DVT prophylaxis: heparin. <Dario Zhu - Last Filed: 06/13/20 11:31> H&P History of Present Illness - General Admit Problem/Dx: Admission Diagnosis/Problem Admission Diagnosis/Problem Diabetic ketoacidosis - History of Present Illness Initial Comments - Free Text/Narative: I performed a history and physical exam of the patient and discussed management with resident. I have reviewed the residents note and agree with documented findings and plan unless otherwise specified in my note. chest Pain Score (Numeric/FACES): 0 Throat Pain Score (Numeric/FACES): 0 Exam - Vital Signs Vital Signs: Last Vital Signs Temp 36.9 C 06/13/20 07:00 Pulse 87 06/13/20 10:00 Resp 13 06/13/20 11:00 BP 136/83 06/13/20 11:00 Pulse Ox 99 06/13/20 11:00 - Patient Data Lab Results Last 24 hrs: Laboratory Results - last 24 hr 06/12/20 06/12/20 06/12/20 Range/Units 12:00 12:00 13:08 Sodium 136 (136-148) mmol/L Potassium 4.3 (3.5-5.1) mmol/L Chloride 102 (98-107) mmol/L Carbon Dioxide 14.5 L (21.0-32.0) mmol/L BUN 25 H (7.0-18.0) mg/dL Creatinine 1.5 H (0.8-1.3) mg/dL Est Cr Clr Drug Dosing 79.04 mL/min Estimated GFR (MDRD) 55.0 ml/min Glucose 297 H (74-106) mg/dL POC Glucose 298 H 252 H (60-110) mg/dL Hemoglobin A1c (4.5-6.2) % Calcium 8.1 L (8.5-10.1) mg/dL Phosphorus 4.0 (2.6-4.7) mg/dL Magnesium 1.9 (1.8-2.4) mg/dL Albumin (3.4-5.0) g/dL Triglycerides (0-200) mg/dL Cholesterol (50-200) mg/dL LDL Cholesterol, Calc (60-180) mg/dL VLDL Cholesterol (5-55) mg/dL HDL Cholesterol (40-60) mg/dL Cholesterol/HDL Ratio (3.3-6.0) TSH 3rd Generation (0.36-3.74) uIU/mL 06/12/20 06/12/20 06/12/20 Range/Units 14:04 15:10 15:59 Sodium 138 (136-148) mmol/L Potassium 4.0 (3.5-5.1) mmol/L Chloride 105 (98-107) mmol/L Carbon Dioxide 21.1 (21.0-32.0) mmol/L BUN 21 H (7.0-18.0) mg/dL Creatinine 1.3 (0.8-1.3) mg/dL Est Cr Clr Drug Dosing 91.20 mL/min Estimated GFR (MDRD) > 60.0 ml/min Glucose 181 H (74-106) mg/dL POC Glucose 206 H 175 H (60-110) mg/dL Hemoglobin A1c (4.5-6.2) % Calcium 8.3 L (8.5-10.1) mg/dL Phosphorus 3.8 (2.6-4.7) mg/dL Magnesium 1.9 (1.8-2.4) mg/dL Albumin (3.4-5.0) g/dL Triglycerides (0-200) mg/dL Cholesterol (50-200) mg/dL LDL Cholesterol, Calc (60-180) mg/dL VLDL Cholesterol (5-55) mg/dL HDL Cholesterol (40-60) mg/dL Cholesterol/HDL Ratio (3.3-6.0) TSH 3rd Generation (0.36-3.74) uIU/mL 06/12/20 06/12/20 06/12/20 Range/Units 16:04 17:24 18:04 Sodium (136-148) mmol/L Potassium (3.5-5.1) mmol/L Chloride (98-107) mmol/L Carbon Dioxide (21.0-32.0) mmol/L BUN (7.0-18.0) mg/dL Creatinine (0.8-1.3) mg/dL Est Cr Clr Drug Dosing mL/min Estimated GFR (MDRD) ml/min Glucose (74-106) mg/dL POC Glucose 177 H 158 H 143 H (60-110) mg/dL Hemoglobin A1c (4.5-6.2) % Calcium (8.5-10.1) mg/dL Phosphorus (2.6-4.7) mg/dL Magnesium (1.8-2.4) mg/dL Albumin (3.4-5.0) g/dL Triglycerides (0-200) mg/dL Cholesterol (50-200) mg/dL LDL Cholesterol, Calc (60-180) mg/dL VLDL Cholesterol (5-55) mg/dL HDL Cholesterol (40-60) mg/dL Cholesterol/HDL Ratio (3.3-6.0) TSH 3rd Generation (0.36-3.74) uIU/mL 06/12/20 06/12/20 06/13/20 Range/Units 19:25 20:05 00:23 Sodium 136 (136-148) mmol/L Potassium 4.0 (3.5-5.1) mmol/L Chloride 103 (98-107) mmol/L Carbon Dioxide 20.9 L (21.0-32.0) mmol/L BUN 23 H (7.0-18.0) mg/dL Creatinine 1.4 H (0.8-1.3) mg/dL Est Cr Clr Drug Dosing 84.68 mL/min Estimated GFR (MDRD) 59.5 ml/min Glucose 215 H (74-106) mg/dL POC Glucose 181 H 346 H (60-110) mg/dL Hemoglobin A1c (4.5-6.2) % Calcium 8.1 L (8.5-10.1) mg/dL Phosphorus 4.4 (2.6-4.7) mg/dL Magnesium 1.8 (1.8-2.4) mg/dL Albumin (3.4-5.0) g/dL Triglycerides (0-200) mg/dL Cholesterol (50-200) mg/dL LDL Cholesterol, Calc (60-180) mg/dL VLDL Cholesterol (5-55) mg/dL HDL Cholesterol (40-60) mg/dL Cholesterol/HDL Ratio (3.3-6.0) TSH 3rd Generation (0.36-3.74) uIU/mL 06/13/20 06/13/20 06/13/20 Range/Units 01:27 02:00 03:00 Sodium 130 L (136-148) mmol/L Potassium 4.2 (3.5-5.1) mmol/L Chloride 100 (98-107) mmol/L Carbon Dioxide 17.4 L (21.0-32.0) mmol/L BUN 28 H (7.0-18.0) mg/dL Creatinine 1.4 H (0.8-1.3) mg/dL Est Cr Clr Drug Dosing 84.68 mL/min Estimated GFR (MDRD) 59.5 ml/min Glucose 360 H (74-106) mg/dL POC Glucose 342 H 331 H (60-110) mg/dL Hemoglobin A1c (4.5-6.2) % Calcium 7.6 L (8.5-10.1) mg/dL Phosphorus 3.8 (2.6-4.7) mg/dL Magnesium 1.8 (1.8-2.4) mg/dL Albumin (3.4-5.0) g/dL Triglycerides (0-200) mg/dL Cholesterol (50-200) mg/dL LDL Cholesterol, Calc (60-180) mg/dL VLDL Cholesterol (5-55) mg/dL HDL Cholesterol (40-60) mg/dL Cholesterol/HDL Ratio (3.3-6.0) TSH 3rd Generation (0.36-3.74) uIU/mL 06/13/20 06/13/20 06/13/20 Range/Units 04:00 06:00 06:00 Sodium (136-148) mmol/L Potassium (3.5-5.1) mmol/L Chloride (98-107) mmol/L Carbon Dioxide (21.0-32.0) mmol/L BUN (7.0-18.0) mg/dL Creatinine (0.8-1.3) mg/dL Est Cr Clr Drug Dosing mL/min Estimated GFR (MDRD) ml/min Glucose (74-106) mg/dL POC Glucose 314 H (60-110) mg/dL Hemoglobin A1c 8.6 H (4.5-6.2) % Calcium (8.5-10.1) mg/dL Phosphorus (2.6-4.7) mg/dL Magnesium (1.8-2.4) mg/dL Albumin (3.4-5.0) g/dL Triglycerides 192 (0-200) mg/dL Cholesterol 94 (50-200) mg/dL LDL Cholesterol, Calc 18 L (60-180) mg/dL VLDL Cholesterol 38 (5-55) mg/dL HDL Cholesterol 38 L (40-60) mg/dL Cholesterol/HDL Ratio 2.5 L (3.3-6.0) TSH 3rd Generation 1.03 (0.36-3.74) uIU/mL 06/13/20 06/13/20 06/13/20 Range/Units 06:42 07:36 07:48 Sodium 133 L (136-148) mmol/L Potassium 3.6 (3.5-5.1) mmol/L Chloride 102 (98-107) mmol/L Carbon Dioxide 24.1 (21.0-32.0) mmol/L BUN 21 H (7.0-18.0) mg/dL Creatinine 1.4 H (0.8-1.3) mg/dL Est Cr Clr Drug Dosing 84.68 mL/min Estimated GFR (MDRD) 59.5 ml/min Glucose 211 H (74-106) mg/dL POC Glucose 239 H 226 H (60-110) mg/dL Hemoglobin A1c (4.5-6.2) % Calcium 7.8 L (8.5-10.1) mg/dL Phosphorus (2.6-4.7) mg/dL Magnesium (1.8-2.4) mg/dL Albumin (3.4-5.0) g/dL Triglycerides (0-200) mg/dL Cholesterol (50-200) mg/dL LDL Cholesterol, Calc (60-180) mg/dL VLDL Cholesterol (5-55) mg/dL HDL Cholesterol (40-60) mg/dL Cholesterol/HDL Ratio (3.3-6.0) TSH 3rd Generation (0.36-3.74) uIU/mL 06/13/20 Range/Units 07:48 Sodium (136-148) mmol/L Potassium (3.5-5.1) mmol/L Chloride (98-107) mmol/L Carbon Dioxide (21.0-32.0) mmol/L BUN (7.0-18.0) mg/dL Creatinine (0.8-1.3) mg/dL Est Cr Clr Drug Dosing mL/min Estimated GFR (MDRD) ml/min Glucose (74-106) mg/dL POC Glucose (60-110) mg/dL Hemoglobin A1c (4.5-6.2) % Calcium (8.5-10.1) mg/dL Phosphorus (2.6-4.7) mg/dL Magnesium (1.8-2.4) mg/dL Albumin 3.1 L (3.4-5.0) g/dL Triglycerides (0-200) mg/dL Cholesterol (50-200) mg/dL LDL Cholesterol, Calc (60-180) mg/dL VLDL Cholesterol (5-55) mg/dL HDL Cholesterol (40-60) mg/dL Cholesterol/HDL Ratio (3.3-6.0) TSH 3rd Generation (0.36-3.74) uIU/mL Result Diagrams: 06/12/20 06:15 06/13/20 07:48 Sepsis Event Note - Focused Exam Vital Signs: Vital Signs Temp Pulse Resp BP Pulse Ox 06/13/20 11:00 13 136/83 99 06/13/20 10:00 87 18 128/82 98 06/13/20 09:00 88 15 122/83 100 06/13/20 08:00 15 136/76 100 06/13/20 07:00 36.9 C 15 136/76 100 06/13/20 06:00 15 128/77 100 06/13/20 05:00 15 115/75 100 06/13/20 04:00 12 119/72 99 06/13/20 03:00 66 11 L 115/72 99 06/13/20 02:00 75 15 128/68 98 06/13/20 01:00 16 134/69 98 06/13/20 00:00 84 15 118/69 97 Date Exam was Performed: 06/13/20 Time Exam was Performed: 11:30 Orders Last 24hrs: Active Orders 24 hr Category Date Time Status Transfer Patient (Change bed) [ADT] Routine ADT 06/13/20 10:21 Ordered Accu Check [Blood Glucose Check, Bedside] [RC] Q6H Care 06/13/20 10:21 Active Accu Check [Blood Glucose Check, Bedside] [RC] TIDAC Care 06/12/20 19:07 Active Consult to [facility] [Consult to Diabetic Nurse Cons 06/12/20 10:32 Active Specialist] [CONS] Routine ADA Diabetic [[place] [employer] Diet] [DIET Diet 06/12/20 Dinner Active ] Acetaminophen [Tylenol Extra Strength] Med 06/12/20 18:48 Active 500 mg PO Q4H PRN Insulin Aspart [NovoLOG] Med 06/12/20 23:05 Active See Protocol SUBCUT TIDAC Medication Orders Acetaminophen (Tylenol Extra Strength) 500 mg PO Q4H PRN PRN Reason: Pain Last Admin: 06/12/20 19:16 Dose: 500 mg Documented by: [email or web address] Albuterol/Ipratropium (Duoneb 3.0-0.5 Mg/3 Ml) 3 ml NEB Q4HRRT PRN PRN Reason: Shortness Of Breath/wheezing Heparin Sodium (Porcine) (Heparin Sodium) 5,000 units SUBCUT Q8H [facility] Last Admin: 06/13/20 09:35 Dose: 5,000 units Documented by: Admin: 06/13/20 00:29 Dose: 5,000 units Documented by: Admin: 06/12/20 16:30 Dose: 5,000 units Documented by: Admin: 06/12/20 08:50 Dose: 5,000 units Documented by: PAWEL Lactated Ringer's (Ringers, Lactated) 1,000 mls @ 125 mls/hr IV ASDIRECTED [facility] Last Admin: 06/13/20 04:40 Dose: 125 mls/hr Documented by: Infusion: 06/13/20 04:40 Dose: 125 mls/hr Documented by: Admin: 06/12/20 20:52 Dose: 125 mls/hr Documented by: Infusion: 06/12/20 17:31 Dose: 125 mls/hr Documented by: Admin: 06/12/20 09:31 Dose: 125 mls/hr Documented by: PAWEL Insulin Aspart (Novolog) 0 unit SUBCUT [facility]AC [facility]; Protocol Last Admin: 06/13/20 11:28 Dose: 1 units Documented by: Admin: 06/13/20 07:39 Dose: 2 units Documented by: Admin: 06/13/20 00:24 Dose: 4 units Documented by: JOHNNIE Ondansetron HCl (Zofran) 4 mg IVPUSH Q4H PRN PRN Reason: Nausea/Vomiting Sodium Chloride (Saline Flush) 10 ml FLUSH ASDIRECTED PRN PRN Reason: Keep Vein Open Last Admin: 06/12/20 06:37 Dose: 10 ml Documented by: RUBY Sodium Chloride (Saline Flush) 2.5 ml FLUSH ASDIRECTED PRN PRN Reason: Keep Vein Open Last Admin: 06/12/20 06:37 Dose: 2.5 ml Documented by: RUBY
[2020-06-12 12:41] LABS: CARBON DIOXIDE,CO2 14.5 mmol/L (21.0-32.0); POTASSIUM,K 4.3 mmol/L (3.5-5.1)
[2020-06-12] MEDS ORDERED: Dextrose 5%-Lactated Ringers 1,000 ML IV SCH (14:30)
[2020-06-12 16:34] LABS: BLOOD UREA NITROGEN,BUN 21 mg/dL (7.0-18.0); CARBON DIOXIDE,CO2 21.1 mmol/L (21.0-32.0); CHLORIDE,CL 105 mmol/L (98-107); GLUCOSE RANDOM 181 mg/dL (74-106); SODIUM,NA 138 mmol/L (136-148)
[2020-06-12] MEDS ORDERED: Insulin Detemir 100 Units/ML 3 ML Pen SUBCUT ONE (17:31)
[2020-06-12] MEDS ORDERED: Acetaminophen 500 MG Tab PO PRN (18:48)
[2020-06-12 20:33] LABS: CARBON DIOXIDE,CO2 20.9 mmol/L (21.0-32.0)
--- NOTE | 2020-06-12 23:03 | PN ---
THC Physician - Brief Progress [id number]/04/2020 22:58[facility] kathyJanisJOHN - [facility] - CITLALLI CARRDate of Service 06/12/2020 22:58HPI/Events of Note Case discussed with RN. 29 year old M with DM1 admitted with DKA. Treated with insulin and fluids.119/69 80s 98% in NADRecs include: hemodynamic monitoring, supplemental O2 PRN, GI and DVT prophlaxis, monitor temps and WBCs, follow glu/AG/HCO3, insulin and fluids per protocol, replace lyte s as needed, pain control.Interventions Minor-Communication with other healthcare providers and/or fa mily
[2020-06-13] MEDS: Insulin Aspart 100 Units/ML 3 ML Pen SUBCUT SCH ×3 (00:24→11:28)
[2020-06-13] MEDS: Heparin Sodium 5,000 Units/ML Vial SUBCUT SCH ×2 (00:29→09:35)
[2020-06-13 02:22] LABS: CARBON DIOXIDE,CO2 17.4 mmol/L (21.0-32.0); POTASSIUM,K 4.2 mmol/L (3.5-5.1)
[2020-06-13] MEDS ORDERED: Insulin Regular, Human 100 Units/ML 10 ML Vial SUBCUT ONE (04:02)
--- NOTE | 2020-06-13 04:02 | PN ---
THC Physician - Brief Progress [id number]/05/2020 04:01[facility] kathy [place], [place] - [facility] - CITLALLI CARRDate of Service 06/13/2020 04:01HPI/Events of Note Discussed with RN: Pt hyperglycemic > 300. Will dose regular insulin 10units SC now, follow glu.Interventions Minor-Communication with other healthcare providers and/or familyElectronically Si gned by: EUGENIA MANZANO () on 06/13/2020 04:01
[2020-06-13] MEDS: Lactated Ringers 1,000 ML IV SCH (04:40)
[2020-06-13] MEDS ORDERED: Insulin Aspart 100 Units/ML 3 ML Pen SUBCUT SCH (07:30)
[2020-06-13 08:18] LABS: CARBON DIOXIDE,CO2 24.1 mmol/L (21.0-32.0); POTASSIUM,K 3.6 mmol/L (3.5-5.1)
[2020-06-13 10:44] LABS: HEMOGLOBIN A1C 8.6 % (4.5-6.2)
--- NOTE | 2020-06-13 13:26 | PCM.DCSUM1 ---
<Db Bentley M - Last Filed: 06/13/20 13:29> Discharge Summary - Hospital Course Free Text/Narrative:: 29-year-old male admitted for diabetic ketoacidosis. He has a PMH of type 1 DM and uses daily disposable insulin pump at home. On admission, CXR was negative and COVID19 test negative. He was treated with IV fluids and IV insulin drip per DKA protocol. Electrolytes were repleted as required. health educator met with patient and reviewed use of insulin pump and also provided information on alternate pumps. Patient successfully transitioned to subcutaneous insulin. He wished to resume using his insulin pump. Patient advised to resume insulin pump on discharge and follow-up with PCP in [place]. All questions addressed and patient discharged in stable condition. - Discharge Data Discharge Date: 06/13/20 Discharge Disposition: Home, Self-Care 01 Condition: Stable - Referral to Home Health Primary Care Physician: PCP None - Patient Summary/Data Consults: Consultations 06/12/20 10:32 Consult to Dictaphone Mechanic [Consult to Diabetic Nurse Specialist] [CONS] Routine - Patient Instructions Diet: Diabetic Diet Activity: As Tolerated Notify Provider of: Fever, Increased Pain, Swelling and Redness, Drainage, Nausea and/or Vomiting - Discharge Plan *PRESCRIPTION DRUG MONITORING PROGRAM REVIEWED*: Not Applicable *COPY OF PRESCRIPTION DRUG MONITORING REPORT IN PATIENT ALISHA: Not Applicable Home Medications: Home Meds Insulin Lispro [HumaLOG] 0 unit SUBCUT ASDIRECTED 06/12/20 [History] Oxygen Therapy Mode: Room Air Patient Handouts: Preventing Diabetic Ketoacidosis Forms: ED Department Discharge Referrals: PCP,None [Primary Care Provider] - - Discharge Summary/Plan Comment DC Time >30 min.: No - Patient Data Vitals - Most Recent: Last Vital Signs Temp 37.1 C 06/13/20 12:00 Pulse 87 06/13/20 10:00 Resp 15 06/13/20 12:00 BP 136/82 06/13/20 12:00 Pulse Ox 99 06/13/20 12:00 Weight - Most Recent: 81.647 kg I&O - Last 24 hours: Intake & Output 06/12/20 06/13/20 06/13/20 22:59 06:59 14:59 Intake Total 517 1794 Output Total 1190 Balance 517 604 Lab Results - Last 24 hrs: Laboratory Results - last 24 hr 06/12/20 06/12/20 06/12/20 Range/Units 14:04 15:10 15:59 Sodium 138 (136-148) mmol/L Potassium 4.0 (3.5-5.1) mmol/L Chloride 105 (98-107) mmol/L Carbon Dioxide 21.1 (21.0-32.0) mmol/L BUN 21 H (7.0-18.0) mg/dL Creatinine 1.3 (0.8-1.3) mg/dL Est Cr Clr Drug Dosing 91.20 mL/min Estimated GFR (MDRD) > 60.0 ml/min Glucose 181 H (74-106) mg/dL POC Glucose 206 H 175 H (60-110) mg/dL Hemoglobin A1c (4.5-6.2) % Calcium 8.3 L (8.5-10.1) mg/dL Phosphorus 3.8 (2.6-4.7) mg/dL Magnesium 1.9 (1.8-2.4) mg/dL Albumin (3.4-5.0) g/dL Triglycerides (0-200) mg/dL Cholesterol (50-200) mg/dL LDL Cholesterol, Calc (60-180) mg/dL VLDL Cholesterol (5-55) mg/dL HDL Cholesterol (40-60) mg/dL Cholesterol/HDL Ratio (3.3-6.0) TSH 3rd Generation (0.36-3.74) uIU/mL 06/12/20 06/12/20 06/12/20 Range/Units 16:04 17:24 18:04 Sodium (136-148) mmol/L Potassium (3.5-5.1) mmol/L Chloride (98-107) mmol/L Carbon Dioxide (21.0-32.0) mmol/L BUN (7.0-18.0) mg/dL Creatinine (0.8-1.3) mg/dL Est Cr Clr Drug Dosing mL/min Estimated GFR (MDRD) ml/min Glucose (74-106) mg/dL POC Glucose 177 H 158 H 143 H (60-110) mg/dL Hemoglobin A1c (4.5-6.2) % Calcium (8.5-10.1) mg/dL Phosphorus (2.6-4.7) mg/dL Magnesium (1.8-2.4) mg/dL Albumin (3.4-5.0) g/dL Triglycerides (0-200) mg/dL Cholesterol (50-200) mg/dL LDL Cholesterol, Calc (60-180) mg/dL VLDL Cholesterol (5-55) mg/dL HDL Cholesterol (40-60) mg/dL Cholesterol/HDL Ratio (3.3-6.0) TSH 3rd Generation (0.36-3.74) uIU/mL 06/12/20 06/12/20 06/13/20 Range/Units 19:25 20:05 00:23 Sodium 136 (136-148) mmol/L Potassium 4.0 (3.5-5.1) mmol/L Chloride 103 (98-107) mmol/L Carbon Dioxide 20.9 L (21.0-32.0) mmol/L BUN 23 H (7.0-18.0) mg/dL Creatinine 1.4 H (0.8-1.3) mg/dL Est Cr Clr Drug Dosing 84.68 mL/min Estimated GFR (MDRD) 59.5 ml/min Glucose 215 H (74-106) mg/dL POC Glucose 181 H 346 H (60-110) mg/dL Hemoglobin A1c (4.5-6.2) % Calcium 8.1 L (8.5-10.1) mg/dL Phosphorus 4.4 (2.6-4.7) mg/dL Magnesium 1.8 (1.8-2.4) mg/dL Albumin (3.4-5.0) g/dL Triglycerides (0-200) mg/dL Cholesterol (50-200) mg/dL LDL Cholesterol, Calc (60-180) mg/dL VLDL Cholesterol (5-55) mg/dL HDL Cholesterol (40-60) mg/dL Cholesterol/HDL Ratio (3.3-6.0) TSH 3rd Generation (0.36-3.74) uIU/mL 06/13/20 06/13/20 06/13/20 Range/Units 01:27 02:00 03:00 Sodium 130 L (136-148) mmol/L Potassium 4.2 (3.5-5.1) mmol/L Chloride 100 (98-107) mmol/L Carbon Dioxide 17.4 L (21.0-32.0) mmol/L BUN 28 H (7.0-18.0) mg/dL Creatinine 1.4 H (0.8-1.3) mg/dL Est Cr Clr Drug Dosing 84.68 mL/min Estimated GFR (MDRD) 59.5 ml/min Glucose 360 H (74-106) mg/dL POC Glucose 342 H 331 H (60-110) mg/dL Hemoglobin A1c (4.5-6.2) % Calcium 7.6 L (8.5-10.1) mg/dL Phosphorus 3.8 (2.6-4.7) mg/dL Magnesium 1.8 (1.8-2.4) mg/dL Albumin (3.4-5.0) g/dL Triglycerides (0-200) mg/dL Cholesterol (50-200) mg/dL LDL Cholesterol, Calc (60-180) mg/dL VLDL Cholesterol (5-55) mg/dL HDL Cholesterol (40-60) mg/dL Cholesterol/HDL Ratio (3.3-6.0) TSH 3rd Generation (0.36-3.74) uIU/mL 06/13/20 06/13/20 06/13/20 Range/Units 04:00 06:00 06:00 Sodium (136-148) mmol/L Potassium (3.5-5.1) mmol/L Chloride (98-107) mmol/L Carbon Dioxide (21.0-32.0) mmol/L BUN (7.0-18.0) mg/dL Creatinine (0.8-1.3) mg/dL Est Cr Clr Drug Dosing mL/min Estimated GFR (MDRD) ml/min Glucose (74-106) mg/dL POC Glucose 314 H (60-110) mg/dL Hemoglobin A1c 8.6 H (4.5-6.2) % Calcium (8.5-10.1) mg/dL Phosphorus (2.6-4.7) mg/dL Magnesium (1.8-2.4) mg/dL Albumin (3.4-5.0) g/dL Triglycerides 192 (0-200) mg/dL Cholesterol 94 (50-200) mg/dL LDL Cholesterol, Calc 18 L (60-180) mg/dL VLDL Cholesterol 38 (5-55) mg/dL HDL Cholesterol 38 L (40-60) mg/dL Cholesterol/HDL Ratio 2.5 L (3.3-6.0) TSH 3rd Generation 1.03 (0.36-3.74) uIU/mL 06/13/20 06/13/20 06/13/20 Range/Units 06:42 07:36 07:48 Sodium 133 L (136-148) mmol/L Potassium 3.6 (3.5-5.1) mmol/L Chloride 102 (98-107) mmol/L Carbon Dioxide 24.1 (21.0-32.0) mmol/L BUN 21 H (7.0-18.0) mg/dL Creatinine 1.4 H (0.8-1.3) mg/dL Est Cr Clr Drug Dosing 84.68 mL/min Estimated GFR (MDRD) 59.5 ml/min Glucose 211 H (74-106) mg/dL POC Glucose 239 H 226 H (60-110) mg/dL Hemoglobin A1c (4.5-6.2) % Calcium 7.8 L (8.5-10.1) mg/dL Phosphorus (2.6-4.7) mg/dL Magnesium (1.8-2.4) mg/dL Albumin (3.4-5.0) g/dL Triglycerides (0-200) mg/dL Cholesterol (50-200) mg/dL LDL Cholesterol, Calc (60-180) mg/dL VLDL Cholesterol (5-55) mg/dL HDL Cholesterol (40-60) mg/dL Cholesterol/HDL Ratio (3.3-6.0) TSH 3rd Generation (0.36-3.74) uIU/mL 06/13/20 06/13/20 Range/Units 07:48 11:25 Sodium (136-148) mmol/L Potassium (3.5-5.1) mmol/L Chloride (98-107) mmol/L Carbon Dioxide (21.0-32.0) mmol/L BUN (7.0-18.0) mg/dL Creatinine (0.8-1.3) mg/dL Est Cr Clr Drug Dosing mL/min Estimated GFR (MDRD) ml/min Glucose (74-106) mg/dL POC Glucose 197 H (60-110) mg/dL Hemoglobin A1c (4.5-6.2) % Calcium (8.5-10.1) mg/dL Phosphorus (2.6-4.7) mg/dL Magnesium (1.8-2.4) mg/dL Albumin 3.1 L (3.4-5.0) g/dL Triglycerides (0-200) mg/dL Cholesterol (50-200) mg/dL LDL Cholesterol, Calc (60-180) mg/dL VLDL Cholesterol (5-55) mg/dL HDL Cholesterol (40-60) mg/dL Cholesterol/HDL Ratio (3.3-6.0) TSH 3rd Generation (0.36-3.74) uIU/mL Med Orders - Current: Current Medications Acetaminophen (Tylenol Extra Strength) 500 mg PO Q4H PRN PRN Reason: Pain Last Admin: 06/12/20 19:16 Dose: 500 mg Documented by: Albuterol/Ipratropium (Duoneb 3.0-0.5 Mg/3 Ml) 3 ml NEB Q4HRRT PRN PRN Reason: Shortness Of Breath/wheezing Heparin Sodium (Porcine) (Heparin Sodium) 5,000 units SUBCUT Q8H BABATUNDE Last Admin: 06/13/20 09:35 Dose: 5,000 units Documented by: Insulin Aspart (Novolog) 0 unit SUBCUT TIDAC [facility]; Protocol Last Admin: 06/13/20 11:28 Dose: 1 units Documented by: Ondansetron HCl (Zofran) 4 mg IVPUSH Q4H PRN PRN Reason: Nausea/Vomiting Sodium Chloride (Saline Flush) 10 ml FLUSH ASDIRECTED PRN PRN Reason: Keep Vein Open Last Admin: 06/12/20 06:37 Dose: 10 ml Documented by: Sodium Chloride (Saline Flush) 2.5 ml FLUSH ASDIRECTED PRN PRN Reason: Keep Vein Open Last Admin: 06/12/20 06:37 Dose: 2.5 ml Documented by: Discontinued Medications Sodium Chloride (Normal Saline) 1,000 mls @ 999 mls/hr IV .BOLUS ONE Stop: 06/12/20 07:20 Last Admin: 06/12/20 06:26 Dose: 999 mls/hr Documented by: Insulin Human Regular 100 unit (/ Sodium Chloride) 100 mls @ 1 mls/hr IV TITRATE [facility]; Protocol Last Titration: 06/12/20 09:21 Dose: 8 unit/hr, 8 mls/hr Documented by: Sodium Chloride (Normal Saline) 1,000 mls @ 999 mls/hr IV .Bolus ONE Stop: 06/12/20 09:10 Last Admin: 06/12/20 08:12 Dose: 999 mls/hr Documented by: Lactated Ringer's (Ringers, Lactated) 1,000 mls @ 125 mls/hr IV ASDIRECTED BABATUNDE Last Admin: 06/13/20 04:40 Dose: 125 mls/hr Documented by: Lactated Ringer's (Ringers, Lactated) 1,000 mls @ 999 mls/hr IV BOLUS ONE Stop: 06/12/20 09:24 Last Admin: 06/12/20 08:52 Dose: 999 mls/hr Documented by: Insulin Human Regular 100 unit (/ Sodium Chloride) 100 mls @ 6 mls/hr IV TITRATE [facility]; Protocol Stop: 06/12/20 19:00 Last Titration: 06/12/20 18:04 Dose: 1 unit/hr, 1 mls/hr Documented by: Dextrose/Lactated Ringer's (Dextrose 5%-Lactated Ringers) 1,000 mls @ 100 mls/hr IV ASDIRECTED [facility] Last Admin: 06/12/20 14:28 Dose: 100 mls/hr Documented by: Insulin Aspart (Novolog) 0 unit SUBCUT TIDAC [facility]; Protocol Insulin Detemir (Levemir) 15 unit SUBCUT ONETIME ONE Stop: 06/12/20 17:32 Last Admin: 06/12/20 17:51 Dose: 15 units Documented by: Insulin Human Regular (Novolin R) 10 unit IVPUSH ONETIME ONE; Protocol Stop: 06/12/20 06:21 Last Admin: 06/12/20 06:26 Dose: 10 unit Documented by: Insulin Human Regular (Novolin R) 10 unit IVPUSH ONETIME ONE; Protocol Stop: 06/12/20 06:57 Last Admin: 06/12/20 06:58 Dose: 10 unit Documented by: Insulin Human Regular (Novolin R) 10 unit SUBCUT ONETIME ONE; Protocol Stop: 06/13/20 04:03 Last Admin: 06/13/20 04:42 Dose: 10 units Documented by: Morphine Sulfate (Morphine) 4 mg IVPUSH ONETIME ONE Stop: 06/12/20 06:40 Last Admin: 06/12/20 06:43 Dose: 4 mg Documented by: Morphine Sulfate (Morphine) 1 mg IVPUSH Q4H PRN PRN Reason: Pain (severe 7-10) Stop: 06/13/20 08:26 Morphine Sulfate (Morphine) 1 mg IVPUSH Q4H PRN PRN Reason: Pain (severe 7-10) Stop: 06/13/20 08:59 Ondansetron HCl (Zofran) 4 mg IVPUSH ONETIME ONE Stop: 06/12/20 06:21 Last Admin: 06/12/20 06:26 Dose: 4 mg Documented by: Ondansetron HCl (Zofran) 4 mg IVPUSH ONETIME ONE Stop: 06/12/20 08:02 Last Admin: 06/12/20 08:04 Dose: 4 mg Documented by: Ondansetron HCl (Zofran) Confirm Administered Dose 4 mg .ROUTE .STK-MED ONE Stop: 06/12/20 08:02 Last Admin: 06/12/20 08:10 Dose: Not Given Documented by: <Dario Zhu - Last Filed: 06/16/20 13:14> Discharge Summary - Hospital Course Free Text/Narrative:: I have seen and evaluated the patient and agree with the residents note unless specified in my note - Referral to Home Health Primary Care Physician: PCP None - Patient Summary/Data Consults: Consultations 06/12/20 10:32 Consult to Dictaphone Mechanic [Consult to Diabetic Nurse Specialist] [CONS] Routine - Patient Data Vitals - Most Recent: Last Vital Signs Temp 37.4 C 06/13/20 13:00 Pulse 87 06/13/20 10:00 Resp 14 06/13/20 13:00 BP 127/80 06/13/20 13:00 Pulse Ox 99 06/13/20 13:00 Med Orders - Current: Current Medications Discontinued Medications Acetaminophen (Tylenol Extra Strength) 500 mg PO Q4H PRN PRN Reason: Pain Last Admin: 06/12/20 19:16 Dose: 500 mg Documented by: Albuterol/Ipratropium (Duoneb 3.0-0.5 Mg/3 Ml) 3 ml NEB Q4HRRT PRN PRN Reason: Shortness Of Breath/wheezing Heparin Sodium (Porcine) (Heparin Sodium) 5,000 units SUBCUT Q8H [facility] Last Admin: 06/13/20 09:35 Dose: 5,000 units Documented by: Sodium Chloride (Normal Saline) 1,000 mls @ 999 mls/hr IV .BOLUS ONE Stop: 06/12/20 07:20 Last Admin: 06/12/20 06:26 Dose: 999 mls/hr Documented by: Insulin Human Regular 100 unit (/ Sodium Chloride) 100 mls @ 1 mls/hr IV TITRATE [facility]; Protocol Last Titration: 06/12/20 09:21 Dose: 8 unit/hr, 8 mls/hr Documented by: Sodium Chloride (Normal Saline) 1,000 mls @ 999 mls/hr IV .Bolus ONE Stop: 06/12/20 09:10 Last Admin: 06/12/20 08:12 Dose: 999 mls/hr Documented by: Lactated Ringer's (Ringers, Lactated) 1,000 mls @ 125 mls/hr IV ASDIRECTED BABATUNDE Last Admin: 06/13/20 04:40 Dose: 125 mls/hr Documented by: Lactated Ringer's (Ringers, Lactated) 1,000 mls @ 999 mls/hr IV BOLUS ONE Stop: 06/12/20 09:24 Last Admin: 06/12/20 08:52 Dose: 999 mls/hr Documented by: Insulin Human Regular 100 unit (/ Sodium Chloride) 100 mls @ 6 mls/hr IV TITRATE [facility]; Protocol Stop: 06/12/20 19:00 Last Titration: 06/12/20 18:04 Dose: 1 unit/hr, 1 mls/hr Documented by: Dextrose/Lactated Ringer's (Dextrose 5%-Lactated Ringers) 1,000 mls @ 100 mls/hr IV ASDIRECTED [facility] Last Admin: 06/12/20 14:28 Dose: 100 mls/hr Documented by: Insulin Aspart (Novolog) 0 unit SUBCUT TIDAC [facility]; Protocol Insulin Aspart (Novolog) 0 unit SUBCUT TIDAC [facility]; Protocol Last Admin: 06/13/20 11:28 Dose: 1 units Documented by: Insulin Detemir (Levemir) 15 unit SUBCUT ONETIME ONE Stop: 06/12/20 17:32 Last Admin: 06/12/20 17:51 Dose: 15 units Documented by: Insulin Human Regular (Novolin R) 10 unit IVPUSH ONETIME ONE; Protocol Stop: 06/12/20 06:21 Last Admin: 06/12/20 06:26 Dose: 10 unit Documented by: Insulin Human Regular (Novolin R) 10 unit IVPUSH ONETIME ONE; Protocol Stop: 06/12/20 06:57 Last Admin: 06/12/20 06:58 Dose: 10 unit Documented by: Insulin Human Regular (Novolin R) 10 unit SUBCUT ONETIME ONE; Protocol Stop: 06/13/20 04:03 Last Admin: 06/13/20 04:42 Dose: 10 units Documented by: Morphine Sulfate (Morphine) 4 mg IVPUSH ONETIME ONE Stop: 06/12/20 06:40 Last Admin: 06/12/20 06:43 Dose: 4 mg Documented by: Morphine Sulfate (Morphine) 1 mg IVPUSH Q4H PRN PRN Reason: Pain (severe 7-10) Stop: 06/13/20 08:26 Morphine Sulfate (Morphine) 1 mg IVPUSH Q4H PRN PRN Reason: Pain (severe 7-10) Stop: 06/13/20 08:59 Ondansetron HCl (Zofran) 4 mg IVPUSH ONETIME ONE Stop: 06/12/20 06:21 Last Admin: 06/12/20 06:26 Dose: 4 mg Documented by: Ondansetron HCl (Zofran) 4 mg IVPUSH ONETIME ONE Stop: 06/12/20 08:02 Last Admin: 06/12/20 08:04 Dose: 4 mg Documented by: Ondansetron HCl (Zofran) Confirm Administered Dose 4 mg .ROUTE .STK-MED ONE Stop: 06/12/20 08:02 Last Admin: 06/12/20 08:10 Dose: Not Given Documented by: Ondansetron HCl (Zofran) 4 mg IVPUSH Q4H PRN PRN Reason: Nausea/Vomiting Sodium Chloride (Saline Flush) 10 ml FLUSH ASDIRECTED PRN PRN Reason: Keep Vein Open Last Admin: 06/12/20 06:37 Dose: 10 ml Documented by: Sodium Chloride (Saline Flush) 2.5 ml FLUSH ASDIRECTED PRN PRN Reason: Keep Vein Open Last Admin: 06/12/20 06:37 Dose: 2.5 ml Documented by:
== END 2020-06-13 14:10 | disposition home or self-care (01) | DRG 420 ==
LOC: MW.ED 06:13 → MW.ICU 08:14
PROVIDERS: ADMIT Student in an Organized Health Care Education/Training Program; ATTEND Student in an Organized Health Care Education/Training Program
DX: E10.10 Type 1 diabetes mellitus with ketoacidosis without coma (principal); R07.9 Chest pain, unspecified; Z20.828 Contact with and (suspected) exposure to other viral communicable diseases; Z88.1 Allergy status to other antibiotic agents; Z90.49 Acquired absence of other specified parts of digestive tract
CPT/HCPCS: 36415; 36600; 71045; 71045-26; 80048; 80053; 80061; 81001; 82009; 82040; 82803; 82962; 83036; 83690; 83735; 84100; 84443; 84484; 85025; 93005; 96361; 96374; 96375; 99285-25; 99291; A9270-GY; J1644; J1815-GY; J2270; J2405; J7030; J7050; J7120; J7121; U0002